=== PATIENT | female | born 1960 | race Caucasian/White ===

== ENCOUNTER 2021-09-20 22:42 | Inpatient (IN) | payer MEDICAID ==
[~2021-09-20] VITALS: Ht 167.6 cm; Wt 89.8 kg
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
--- NOTE | 2021-09-20 22:55 | NUR ---
EDMD at pt bedside for eval.
[2021-09-20] MEDS ORDERED: MELO7.5T12 PO (23:13)
[2021-09-20] MEDS ORDERED: ATOR10TA PO (23:13)
[2021-09-20] MEDS ORDERED: ONDANSETRON ODT 4 MG TAB.RAPDIS SL ONE (23:15)
[2021-09-20] MEDS ORDERED: KETOROLAC TROMETHAMINE 60 MG INJ IM ONE ×2 (23:15→23:34)
[2021-09-20] MEDS ORDERED: HYDROMORPHONE 1 MG/1 ML DISP.SYRIN IM ONE (23:15)
--- NOTE | 2021-09-20 23:15 | NUR ---
EDMD ordered some pain medication along with an antiemetic. Meds were administered in a expedient mannor and were extremely effective giving her near instant relief. Pt tolerated well with no s/sx of reaction. Pt had good VS before and after admin. 135/88, 98% RA, 79bpm, 18rpm. Will reassess VS in 1hr. pt states that she feels much better and that for the first time since falling her muscles are relaxed and she is not tense anymore.
[2021-09-20 23:32] LABS: HEMATOCRIT 41.7 % (31.2-41.9); MEAN CORPUSCULAR HEMOGLOBIN 31.4 uug (24.7-32.8); MEAN CORPUSCULAR VOLUME 91.5 fL (75.5-95.3); PLATELET COUNT (AUTO) 213 K/uL (179-408)
[2021-09-20] MEDS ORDERED: HYDROMORPHONE 2 MG/1 ML DISP.SYRIN ONE (23:32)
[2021-09-20] MEDS ORDERED: ONDANSETRON 4 MG/2 ML VIAL ONE (23:32)
[2021-09-20 23:37] LABS: CREATININE 0.6 mg/dL (0.6-1.3)
[2021-09-20 23:42] LABS: BILIRUBIN,DIRECT 0.3 mg/dL (0.0-0.2); BILIRUBIN,TOTAL 1.1 mg/dL (0.2-1.0); TOTAL PROTEIN, SERUM 6.8 g/dL (6.4-8.2)
[2021-09-20] MEDS ORDERED: POTASSIUM BICARBONATE/CIT AC 25 MEQ TABLET.EFF PO ONE (23:45)
--- NOTE | 2021-09-20 23:50 | NUR ---
Pt promptly fell asleep after taking her [place] medication, and is currently resting comfortably. All needs met, side rales up and I am sitting right outside her room and monitoring the pt closely. VSS. Pt has good pulses and cms x4 ext, Youth Director strength strong and equal bilat. Pt is lucid and can carry a conversation, answer questions and follow commands. 126/78, 79bpm, 98% RA, 16rpm. Pt denies any pain.
[2021-09-20 23:53] LABS: CREATINE KINASE, TOTAL 1111 U/L (26-192)
[2021-09-21] MEDS ORDERED: POTASSIUM BICARBONATE/CIT AC 25 MEQ TABLET.EFF ONE (00:05)
--- NOTE | 2021-09-21 05:18 | NUR ---
Pt is sleeping soundly with audible snoring, in pos of comfort. VSS 121/75, 98% RA, 81bpm, 16rpm.
--- NOTE | 2021-09-21 05:30 | NUR ---
Andra called with authorization for the pt to be admitted and treated. Authorization #: [id number]. EDMD Dr. Rincon called and informed of pt's authorization status. Ask him how we ough to proceed, and if he wanted me to call [facility] for panel. Dr. Rincon at this time told me to hold off on calling for admission and that he would let me know when he's ready for me to call for admission consult. I acknowledged and said that I am standing by for him to give further instructions. Pt still appears to be in deep sleep, with audible snorring. VSS. Monitoring pt closely.
--- NOTE | 2021-09-21 06:20 | NUR ---
Pt just woke up for the first time since administering her pain meds. Pt swabbed for covid and specimen sent to lab. Pt informed that she has a FX of her tail bone and that is probably why she was in so much pain and could not walk. Also informed her that she will be admitted somewhere, most likely here, and that she will need to get the FX seen by a specialist and properly treated. Pt is too preoccupied with the drama that exists in her life to really care about her Dx. She keeps asking about what will happen to her dog, or the neighbor she is feuding with because of the backyard construction of a [employer] he has going on. Clearly there seems to be some indications of certain deeper issues she may have going on currently. Informed her that she is free to leave at any time and that we cannot hold her here, and that this is something she will need to think about and make a decision weither to stay and get treated or to follow up with [facility] on her own. She at this point doesnt know what she wants to do or should do regarding staying and being treated.
--- NOTE | 2021-09-21 06:29 | NUR ---
MIRA MARTINI FROM [facility] PAGED.
--- NOTE | 2021-09-21 07:05 | NUR ---
Pts son just called seeking info regarding her status and dispo. Son provided with all the info currently available and was ella tup to date regarding pts current situration. Pt expressing that she doesnt want to be here and that she is considering signing AMA due to her dog and the legal issues she has with neighbor.
--- NOTE | 2021-09-21 09:45 | NUR ---
UNABLE TO DO EKG NOW. PT TALKING ON THE OHONE REQUESTING TO DO THE EKG LATER.
[2021-09-21 10:21] LABS: *BILIRUBIN,URIN 1+ (NEGATIVE); *BLOOD, URINE 2+ (NEGATIVE); *COLOR,URINE YELLOW (YELLOW); *KETONES,URINE TRACE (NEGATIVE); *UROBILINOGEN,URINE 0.2 E.U./dl (NORMAL); LEUKOCYTE ESTERASE ,URINE 1+ (NEGATIVE); NITRITE, URINE NEGATIVE (NEGATIVE); UGLUCOSE NEGATIVE (NEGATIVE)
--- NOTE | 2021-09-21 10:23 | NUR ---
pairsh provided for pt. urine sent to lab
--- NOTE | 2021-09-21 10:31 | NUR ---
PT REFUSES HEPLOCK, REQUESTING ONLY IM PAIN MANAGEMENT.
[2021-09-21] MEDS ORDERED: HYDROMORPHONE 1 MG/1 ML DISP.SYRIN IM PRN (10:45)
[2021-09-21] MEDS ORDERED: HYDROMORPHONE 1 MG/1 ML DISP.SYRIN ONE (10:50)
[2021-09-21] MEDS ORDERED: KETOROLAC TROMETHAMINE 30 MG INJ ONE (10:59)
[2021-09-21] MEDS ORDERED: KETOROLAC TROMETHAMINE 30 MG INJ IM ONE (11:00)
[2021-09-21] MEDS ORDERED: MAGNESIUM HYDROXIDE 30 ML LIQUID UDC PO PRN (11:45)
[2021-09-21] MEDS ORDERED: ONDANSETRON 4 MG/2 ML VIAL IV PRN (11:45)
[2021-09-21] MEDS ORDERED: TEMAZEPAM 15 MG CAPSULE PO PRN (11:45)
[2021-09-21] MEDS ORDERED: ACETAMINOPHEN 325 MG TABLET PO PRN (11:45)
[2021-09-21] MEDS ORDERED: MORPHINE SULFATE 2 MG/1 ML DISP.SYRIN IV PRN (11:45)
[2021-09-21] MEDS: POTASSIUM CHLORIDE 20 MEQ in IV NS 1000 ML 1,000 ML IV PRN (12:17)
[2021-09-21] MEDS: ENOXAPARIN SODIUM 40 MG/0.4 ML DISP.SYRIN SQ SCH (12:30)
--- NOTE | 2021-09-21 13:30 | NUR ---
pt refused heplock/iv with potassium at this time.
[2021-09-21] MEDS ORDERED: ENOXAPARIN SODIUM 40 MG/0.4 ML DISP.SYRIN SQ ONE (13:34)
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
[2021-09-21 15:11] LABS: *CLARITY,URINE TURBID (CLEAR); BACTERIA,URINE FEW /HPF (NONE SEEN); SQUAMOUS EPITHELIAL CELL,UR MODERATE /HPF (NONE SEEN); URINE AMORPHOUS URATE MANY /HPF
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
--- NOTE | 2021-09-21 19:30 | NUR ---
Pt still refusing IV access at this time.
[2021-09-21 20:00] VITALS: BP 131/76
[2021-09-21] MEDS: ATORVASTATIN 10 MG TABLET PO SCH (20:38)
[2021-09-21] MEDS: DOCUSATE SODIUM 100 MG CAPSULE PO SCH (20:39)
[2021-09-21] MEDS: HYDROCODONE/APAP 5-325MG TABLET PO PRN (20:39)
[2021-09-22] MEDS: HYDROCODONE/APAP 5-325MG TABLET PO PRN ×2 (00:43→06:44)
[2021-09-22] MEDS ORDERED: KETOROLAC TROMETHAMINE 15 MG INJ IM PRN (01:45)
[2021-09-22] MEDS: LIDOCAINE 5% PATCH TD SCH ×2 (01:57→20:50)
[2021-09-22 04:00] VITALS: BP 121/70
--- NOTE | 2021-09-22 05:50 | NUR ---
Slept intermittently. Pt very anxious and crying about "family problems" throughout the night. Ketoralac IM given and Lidocaine patch ordered for patient, tolerated well. Able to make needs known. Will endorse to day shift.
[2021-09-22] MEDS: PANTOPRAZOLE SODIUM 40 MG TABLET.DR PO SCH (06:44)
[2021-09-22] MEDS: ENOXAPARIN SODIUM 40 MG/0.4 ML DISP.SYRIN SQ SCH ×2 (08:17→11:19)
[2021-09-22] MEDS: NEOMY/BACITRAC/POLYMI OINT 28.35 GM TUBE TOP SCH (11:29)
--- NOTE | 2021-09-22 11:50 | NUR ---
WOUND CARE CONSULT: PT PRESENTS WITH BILATERAL ELBOW DRY ABRASIONS, PRESENT ON ADMISSION. PT REFUSED TO TURN FOR FULL SKIN ASSESSMENT. CONCUR WITH CURRENT TREATMENT ORDERS. MD IN AGREEMENT WITH PLAN OF CARE.
[2021-09-22 11:51] LABS: HEMATOCRIT 42.3 % (31.2-41.9); MEAN CORPUSCULAR HEMOGLOBIN 31.5 uug (24.7-32.8); MEAN CORPUSCULAR VOLUME 93.2 fL (75.5-95.3); PLATELET COUNT (AUTO) 207 K/uL (179-408)
[2021-09-22 11:55] LABS: BILIRUBIN,TOTAL 0.8 mg/dL (0.2-1.0); CREATININE 0.8 mg/dL (0.6-1.3); MAGNESIUM 2.4 mg/dL (1.8-2.4); POTASSIUM 3.5 mmol/L (3.5-5.1); TOTAL PROTEIN, SERUM 6.6 g/dL (6.4-8.2)
[2021-09-22 12:06] VITALS: BP 121/83
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
[2021-09-22] MEDS: KETOROLAC TROMETHAMINE 30 MG INJ IM PRN ×2 (14:20→20:51)
[2021-09-22 16:00] VITALS: BP 152/92
--- NOTE | 2021-09-22 16:21 | NUR ---
Crisis Team Note Dr Olmedo requested that this clinician meet with patient since patient was taking of leaving AMA earlier. Patient presents as very anxious with congruent affect. She complained of severe pain since her fall and was able to discuss how she fell and crawled to her car to drive to [facility]. she reported how she fell on her marble floors and showed this clinician carnes on her elbows from her crawling to her car.She did not want to call anyone. She was able to relate that " [employer] told her that she did not have a fracture but in fact, she has one per your hospital".. Patient does appear very suspicious of family but is alert and oriented x4. She is organized in her thought process as she said " I need physical therapy and I think I need a brace". In view of patient's level of pain and arrival of physiotherapist, this selling underwriter did not want to push the patient further with a longer assessment. She is coherent and organized with paranoid ideation. Patient is competent to make decisions even if she may be exercising poor judgement. Patient cannot be forced to stay in the hospital nor can she be forced to accept treatment unless she has a life threatening condition. Psychiatry consult has been ordered by Dr Olmedo. Patient discussed her mansion in [place] and said the children want her to sell it. No criteria for 5150. Patient is in distress due to her pain so baseline mood assessment is not possible.
[2021-09-22] MEDS: ATORVASTATIN 10 MG TABLET PO SCH (20:50)
[2021-09-22] MEDS: DOCUSATE SODIUM 100 MG CAPSULE PO SCH (20:50)
[2021-09-22 21:10] VITALS: BP 140/80
[2021-09-22] MEDS: CEphaleXIN 500 MG CAPSULE PO SCH (22:34)
[2021-09-23 04:00] VITALS: BP 125/77
[2021-09-23] MEDS: CEphaleXIN 500 MG CAPSULE PO SCH ×3 (06:12→21:21)
[2021-09-23] MEDS: PANTOPRAZOLE SODIUM 40 MG TABLET.DR PO SCH (06:12)
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
[2021-09-23] MEDS: NEOMY/BACITRAC/POLYMI OINT 28.35 GM TUBE TOP SCH (09:01)
[2021-09-23] MEDS: ENOXAPARIN SODIUM 40 MG/0.4 ML DISP.SYRIN SQ SCH (09:02)
--- NOTE | 2021-09-23 10:30 | NUR ---
PER THE PHYSICAL THERAPIST PATIENT IS REFUSING HER THERAPY ORDERED.
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
[2021-09-23 12:00] VITALS: BP 148/91
--- NOTE | 2021-09-23 12:00 | NUR ---
CALLED [facility] TO ENSURE THAT THE PSYCHIATRIST FINAL EXPENSE AGENT IS AWARE TO COME AND EVALUATE PATIENT SPOKE WITH CHERRI AND SHE STATED THAT PATIENTS NAME IS ON THEIR LIST TO SEE DR BRALOW TODAY.
[2021-09-23] MEDS: KETOROLAC TROMETHAMINE 30 MG INJ IM PRN (13:12)
--- NOTE | 2021-09-23 13:12 | NUR ---
PATIENT REQUESTED FOR PAIN MEDICATION DID NOT WANT TO TRY THE ULTRAM FIRST WANTED THE TORADOL GIVEN I.M ORDERED MADE COMFORTABLE.
[2021-09-23 16:00] VITALS: BP 138/72
--- NOTE | 2021-09-23 18:00 | NUR ---
PATIENT SEEN AND EXAMINED BY DR CORREIA AND PATIENT WAS ENCOURAGED TO NOT REFUSE PHYSICAL THERAPY ORDERED THEY WILL BE ABLE TO FIGURE OUT WHAT TYPE OF BRACE SHE WILL NEED AND SHE EXPRESSED UNDERSTANDING.
--- NOTE | 2021-09-23 20:00 | NUR ---
Patient calling screaming over intercom. This is the first time she is calling during this shift. She is screaming that she will post a complain of the hospital on social media. Listened to patient and assessed need. Patient encouraged to begin to work with PT for solutions to her sacral pain. New morphine IM offered and patient agrees. Still refusing IV access. Patient is content when this RN left the room. Safety measures initiated, call light within reach.
[2021-09-23] MEDS: MORPHINE SULFATE 2 MG/1 ML DISP.SYRIN IM PRN (20:13)
[2021-09-23] MEDS: DOCUSATE SODIUM 100 MG CAPSULE PO SCH (20:14)
[2021-09-23] MEDS: ATORVASTATIN 10 MG TABLET PO SCH (20:14)
[2021-09-23] MEDS: LIDOCAINE 5% PATCH TD SCH (20:14)
[2021-09-23 20:58] VITALS: BP 150/75
[2021-09-24] MEDS: MORPHINE SULFATE 2 MG/1 ML DISP.SYRIN IM PRN ×3 (03:12→21:13)
--- NOTE | 2021-09-24 04:51 | NUR ---
PATIENT IS YELLING AT STAFF, SAYING SHE WILL POST PICTURES OF HERSELF IN THE HOSPITAL ON SOCIAL MEDIA. PATIENTS NEEDS ASSESSED AND MET. SHE IS ON A BED REES ATTEMPTING TO URINATE. PER PATIENT SHE CAN NOT URINATE. OFFERED TO WAIT LONGER IN USING THE BEDPAN OR CALL MD FOR A DU CATHETER. PATIENT ASKED TO BE REPOSITIONED INSTEAD AND WAIT USING HER BEDPAN.
[2021-09-24 05:50] VITALS: BP 137/87
[2021-09-24] MEDS: CEphaleXIN 500 MG CAPSULE PO SCH ×3 (06:31→21:05)
[2021-09-24] MEDS: PANTOPRAZOLE SODIUM 40 MG TABLET.DR PO SCH (06:31)
--- NOTE | 2021-09-24 06:38 | NUR ---
Patient is content. Needs assessed at this time and met. Denies any discomfort, does not request pain medication at this time. Cooling measures in place for temp 93.6. Patient noted to be able to pull herself up in bed using side rails for assist. Patient has some facial grimacing during procedure but refuses assist from staff. States "Niurka done this many times". Safety measures continued. Call light within reach. Addendum: 09/24/21 at 0747 by LISSETT RAMOS RN Temperature correction not 93.6, 99.3.
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
[2021-09-24] MEDS: ENOXAPARIN SODIUM 40 MG/0.4 ML DISP.SYRIN SQ SCH (09:10)
[2021-09-24] MEDS: NEOMY/BACITRAC/POLYMI OINT 28.35 GM TUBE TOP SCH (09:11)
[2021-09-24 12:00] VITALS: BP 120/85
--- NOTE | 2021-09-24 14:37 | NUR ---
Patient said she feels muscle spasm in her back sometimes radiating to her legs. Informed Dr. Olmedo with new order.
[2021-09-24 16:00] VITALS: BP 143/86
--- NOTE | 2021-09-24 16:18 | NUR ---
Patient is scratching lower back. Refused to remove abdominal binder or undershirt which are slightly wet. Pt prefers to stay on her back all the time. Changed her underpad and put towel per request. Requested anti itch cream from dr. salas.
--- NOTE | 2021-09-24 17:30 | NUR ---
Spoke to Dr. Acosta reminded of patient's pending consult. He said he's coming tonight. Dr. maritza jarvis.
[2021-09-24] MEDS: diphenhydrAMINE 1% CREAM 28.3 GM TUBE TP PRN (18:02)
--- NOTE | 2021-09-24 18:42 | NUR ---
Patient continues to refuse Iv heplock despite explanation of risks/benefits. aware.
--- NOTE | 2021-09-24 19:00 | NUR ---
Dr. Acosta on the floor to see the patient.
--- NOTE | 2021-09-24 19:15 | NUR ---
Received pt lying in bed. Dr. Acosta by bedside, talking to pt. AO x 4. On room air saturating at 94%. No signs of acute distress noted. Call lights within reach, safety measures initiated.
[2021-09-24 20:10] VITALS: BP 132/82
[2021-09-24] MEDS: ATORVASTATIN 10 MG TABLET PO SCH (20:31)
[2021-09-24] MEDS: ESCITALOPRAM OXALATE 10 MG TABLET PO SCH (20:31)
[2021-09-24] MEDS: LIDOCAINE 5% PATCH TD SCH (20:32)
[2021-09-24] MEDS: DOCUSATE SODIUM 100 MG CAPSULE PO SCH (20:32)
[2021-09-24] MEDS: CARISOPRODOL 350 MG TABLET PO PRN (21:04)
[2021-09-25 04:21] VITALS: BP 140/82
[2021-09-25] MEDS: CEphaleXIN 500 MG CAPSULE PO SCH ×3 (06:05→21:31)
[2021-09-25] MEDS: PANTOPRAZOLE SODIUM 40 MG TABLET.DR PO SCH (06:05)
[2021-09-25] MEDS: POTASSIUM CHLORIDE 20 MEQ in IV NS 1000 ML 1,000 ML IV PRN ×2 (06:06→15:06)
[2021-09-25] MEDS: MORPHINE SULFATE 2 MG/1 ML DISP.SYRIN IM PRN ×3 (06:16→22:41)
--- NOTE | 2021-09-25 07:17 | NUR ---
Slept comfortably through the night. AOx4. On room air saturating at 95%. Back area cleaned, lidocaine patch applied. Carisoprodol 350mg PO given for muscle spasm, effective. No signs of acute distress noted. Abdominal binder still in place. IV in R hand running NS + 20 meq KCL at 80 mls/hr. Call lights within reach. Safety measures maintained. Will endorse to am shift.
[2021-09-25] MEDS: ESCITALOPRAM OXALATE 10 MG TABLET PO SCH ×2 (09:00→20:18)
[2021-09-25] MEDS: NEOMY/BACITRAC/POLYMI OINT 28.35 GM TUBE TOP SCH (10:01)
[2021-09-25] MEDS: ENOXAPARIN SODIUM 40 MG/0.4 ML DISP.SYRIN SQ SCH (10:02)
--- NOTE | 2021-09-25 10:06 | NUR ---
Patient prefers to take Lexapro at bedtime. md and pharmacy aware.
[2021-09-25] MEDS: diphenhydrAMINE 1% CREAM 28.3 GM TUBE TP PRN (10:34)
--- NOTE | 2021-09-25 13:31 | NUR ---
Patient is yelling upset that I haven't given her pain medication due at 10. Informed her that the order is as needed and that this is the first time she's asked for it today but she refused to listen and dismissed me stating that she's on the phone with her insurance because she needs to figure out where to go from here. Patient said she spoke with watch case polisher earlier about going to a rehab facility to continue physical therapy but pt said she refused to go and needs to talk to her insurance about it. Offered to give her pain medication now but she said no because she's on hold with her insurance still. [place] community associate also came in to talk to patient per request but pt was still on the phone.
--- NOTE | 2021-09-25 15:06 | NUR ---
SW Family Contact SHERON spoke with patient's son, Zan Cruz [phone], to inform him of patient's discharge. Patient's son expressed his concerns for patient's discharge and stated he understood but would like to speak with Dr. Olmedo and Dr. Acosta. SW informed him that she will let doctors know to give him a call. SW received call from patient's son, Rajeev Cruz [phone], who stated that he was scared for patient's and their safety upon discharge. Mr. Cruz stated that the psychiatrist has not contacted them and he wants to express his concern. SW informed him that she will continue to follow up with psychiatrist. Plan: SW will continue to follow up with family.
[2021-09-25 16:00] VITALS: BP 124/73
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
--- NOTE | 2021-09-25 19:02 | NUR ---
Patient is still on the phone and refused to be disturbed. Asked if she needs anything and she shook her head. Endorsed.
[2021-09-25] MEDS: DOCUSATE SODIUM 100 MG CAPSULE PO SCH (20:18)
[2021-09-25] MEDS: LIDOCAINE 5% PATCH TD SCH (20:19)
[2021-09-25] MEDS: ATORVASTATIN 10 MG TABLET PO SCH (20:50)
[2021-09-25 21:00] VITALS: BP 122/85
[2021-09-26] MEDS: CARISOPRODOL 350 MG TABLET PO PRN (04:20)
[2021-09-26 04:29] VITALS: BP 138/83
[2021-09-26] MEDS: CEphaleXIN 500 MG CAPSULE PO SCH ×3 (06:14→21:24)
[2021-09-26] MEDS: PANTOPRAZOLE SODIUM 40 MG TABLET.DR PO SCH (06:14)
[2021-09-26] MEDS: HYDROCODONE/APAP 5-325MG TABLET PO PRN ×3 (06:43→18:41)
[2021-09-26] MEDS: NEOMY/BACITRAC/POLYMI OINT 28.35 GM TUBE TOP SCH (08:23)
[2021-09-26] MEDS: ENSURE ENLIVE (VAN) 240 ML LIQUID PO SCH (08:23)
--- NOTE | 2021-09-26 10:07 | NUR ---
Patient to be seen by pain management to assess patient's pain.
[2021-09-26] MEDS: MORPHINE SULFATE 2 MG/1 ML DISP.SYRIN IM PRN (10:41)
[2021-09-26 11:51] VITALS: BP 128/73
[2021-09-26] MEDS: DOCUSATE SODIUM 100 MG CAPSULE PO SCH ×2 (13:24→17:18)
--- NOTE | 2021-09-26 15:20 | NUR ---
Patient okay receiving pain meds via IV. Will endorse information to PM nurse. Patient is planned to be discharged to [facility] to continue rehab therapy. Doctor notified. Agricultural Agent notified.
[2021-09-26 15:38] VITALS: BP 128/77
[2021-09-26] MEDS ORDERED: KETOROLAC TROMETHAMINE 30 MG INJ IVP PRN (19:00)
[2021-09-26] MEDS ORDERED: KETOROLAC TROMETHAMINE 30 MG INJ IVP SCH (19:00)
--- NOTE | 2021-09-26 19:45 | NUR ---
Pt refusing IV fluids
[2021-09-26 20:00] VITALS: BP 151/76
[2021-09-26] MEDS: ATORVASTATIN 10 MG TABLET PO SCH (21:24)
[2021-09-26] MEDS: ESCITALOPRAM OXALATE 10 MG TABLET PO SCH (21:24)
[2021-09-26] MEDS: LIDOCAINE 5% PATCH TD SCH (21:24)
[2021-09-26] MEDS: METHOCARBAMOL 750 MG TABLET PO SCH (21:27)
[2021-09-27] MEDS: HYDROCODONE/APAP 10-325 MG TABLET PO PRN ×2 (00:56→23:13)
[2021-09-27] MEDS: KETOROLAC TROMETHAMINE 30 MG INJ IVP SCH ×4 (03:00→21:21)
--- NOTE | 2021-09-27 05:39 | NUR ---
Slept intermittently. C/o pain in sacral region that is alleviated with [place]. Pt refused Toradol. No distress noted. Comfort maintained. Relaxation techniques given to patient to hammersmith helper in pain relief. Will endorse to day shift.
[2021-09-27] MEDS: CEphaleXIN 500 MG CAPSULE PO SCH ×3 (06:06→21:20)
[2021-09-27] MEDS: MORPHINE SULFATE 2 MG/1 ML DISP.SYRIN IM PRN (06:06)
[2021-09-27] MEDS: PANTOPRAZOLE SODIUM 40 MG TABLET.DR PO SCH (06:06)
[2021-09-27 07:08] LABS: HEMATOCRIT 42.2 % (31.2-41.9); MEAN CORPUSCULAR HEMOGLOBIN 31.8 uug (24.7-32.8); MEAN CORPUSCULAR VOLUME 92.9 fL (75.5-95.3); PLATELET COUNT (AUTO) 215 K/uL (179-408)
[2021-09-27 07:29] LABS: CREATININE 0.5 mg/dL (0.6-1.3); MAGNESIUM 2.5 mg/dL (1.8-2.4); PHOSPHOROUS 3.8 mg/dL (2.5-4.9); POTASSIUM 3.5 mmol/L (3.5-5.1)
[2021-09-27] MEDS: DOCUSATE SODIUM 100 MG CAPSULE PO SCH ×2 (08:10→18:16)
[2021-09-27] MEDS: ENSURE ENLIVE (VAN) 240 ML LIQUID PO SCH (08:11)
[2021-09-27] MEDS: METHOCARBAMOL 750 MG TABLET PO SCH ×3 (08:11→18:16)
[2021-09-27] MEDS: NEOMY/BACITRAC/POLYMI OINT 28.35 GM TUBE TOP SCH (08:11)
--- NOTE | 2021-09-27 09:51 | NUR ---
Notified Dr. Augustine to place order for Lidocaine cream BID for patient experiencing pain. Will place order and endorse to PM nurse.
[2021-09-27] MEDS: LIDOCAINE 5% OINT 35.44 GM TUBE TOP SCH ×2 (10:29→18:16)
[2021-09-27 11:49] VITALS: BP 117/67
[2021-09-27] MEDS ORDERED: METH-807 PO (12:10)
[2021-09-27] MEDS ORDERED: HYDR-3972 PO (12:10)
[2021-09-27] MEDS ORDERED: DOCU-141 PO (12:10)
[2021-09-27] MEDS ORDERED: LIDO30AD10 TD (12:10)
[2021-09-27] MEDS ORDERED: ACET325T53 PO (12:10)
[2021-09-27] MEDS ORDERED: TEMA15CA PO (12:10)
[2021-09-27] MEDS ORDERED: Neomy/Bacitrac/Polymi Oint TOP (12:10)
[2021-09-27] MEDS ORDERED: HYDR-3980 PO (12:10)
[2021-09-27] MEDS ORDERED: ESCI-9 PO (12:10)
[2021-09-27] MEDS ORDERED: LIDO35.4 TOP (12:10)
[2021-09-27] MEDS: HYDROCODONE/APAP 5-325MG TABLET PO PRN (12:55)
[2021-09-27 16:05] VITALS: BP 153/64
[2021-09-27] MEDS ORDERED: DOCU250C14 PO (16:41)
[2021-09-27] MEDS ORDERED: ESCI5TAB PO (16:41)
[2021-09-27] MEDS ORDERED: LIDO30AD10 TP (16:41)
--- NOTE | 2021-09-27 19:30 | NUR ---
ANDREIA Zuñiga informed this nurse that she overheard pt talking on the phone stating that she is going to throw herself on the floor so that she can beryl the hospital.
[2021-09-27 20:14] VITALS: BP 137/77
[2021-09-27] MEDS: LIDOCAINE 5% PATCH TD SCH (21:21)
[2021-09-27] MEDS: ESCITALOPRAM OXALATE 10 MG TABLET PO SCH (21:21)
[2021-09-27] MEDS: ATORVASTATIN 10 MG TABLET PO SCH (21:21)
[2021-09-28] MEDS: KETOROLAC TROMETHAMINE 30 MG INJ IVP SCH ×2 (02:46→09:00)
--- NOTE | 2021-09-28 05:37 | NUR ---
Pt slept intermittently throughout the night. C/o pain periodically. IV site intact. Refused Toradol at 0300H. Pt very anxious, relaxation techniques taught to patient to aide in relaxation. Comfort maintained. Will endorse to day shift.
[2021-09-28] MEDS: PANTOPRAZOLE SODIUM 40 MG TABLET.DR PO SCH (06:21)
[2021-09-28] MEDS: CEphaleXIN 500 MG CAPSULE PO SCH (06:21)
[2021-09-28] MEDS: MORPHINE SULFATE 2 MG/1 ML DISP.SYRIN IM PRN ×2 (06:21→11:28)
--- NOTE | 2021-09-28 07:00 | NUR ---
received pt in bed awake .axox4.call light with in reach no c/o pain noted.
[2021-09-28] MEDS: DOCUSATE SODIUM 100 MG CAPSULE PO SCH (08:00)
[2021-09-28] MEDS: ENSURE ENLIVE (VAN) 240 ML LIQUID PO SCH (08:02)
[2021-09-28] MEDS: NEOMY/BACITRAC/POLYMI OINT 28.35 GM TUBE TOP SCH (08:50)
[2021-09-28] MEDS: LIDOCAINE 5% OINT 35.44 GM TUBE TOP SCH (09:00)
[2021-09-28] MEDS: METHOCARBAMOL 750 MG TABLET PO SCH ×2 (09:24→13:00)
--- NOTE | 2021-09-28 11:00 | NUR ---
PATIENT IS YELLING AT STAFF,and on the phone talking to somebody SAYING SHE WILL POST PICTURES OF THE HOSPITAL ON SOCIAL MEDIA.md and charge nurse made aware PATIENTS NEEDS ASSESSED AND MET.
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
[2021-09-28 11:45] VITALS: BP 142/89
--- NOTE | 2021-09-28 12:02 | NUR ---
Social Work APS Report Protective Services Report (Intake ID [id number]) was submitted on 09/28/2021 at 12:00PM. A copy will be placed in patient's chart.
--- NOTE | 2021-09-28 13:00 | NUR ---
pt is talking on the phone so loud and crying that she needs hospital bed and needs help at home no body helping her in the hospital she wants to transfer to other hospital and she is calling 911 and she will beryl the hospital try to explain to the pt telephonic case manager arrange everything .explain the pt when she will go home home health will follow her
[2021-09-28] MEDS ORDERED: LORAZEPAM 2 MG/1 ML VIAL IV ONE (13:50)
--- NOTE | 2021-09-28 13:59 | NUR ---
pt is very aggressive and crying yelling screaming on the staff and on phone per md orders ativan 1mg iv given
--- NOTE | 2021-09-28 14:20 | NUR ---
dc orders received noted and carried out,dc instruction and education given to the pt and the ambulances people .dc heplock per md orders pt left the facility via ambulances in stable condition
== END 2021-09-28 14:20 | disposition home health service (06) | DRG 347 ==
LOC: ER 22:44 → TRANSITION 09-21 09:35 → MEDSURG3 09-21 13:26
PROVIDERS: ADMIT Internal Medicine; ATTEND Student in an Organized Health Care Education/Training Program
DX: S32.10XA Unspecified fracture of sacrum, initial encounter for closed fracture (principal); M62.82 Rhabdomyolysis; K76.0 Fatty (change of) liver, not elsewhere classified; F29 Unspecified psychosis not due to a substance or known physiological condition; F20.9 Schizophrenia, unspecified; N39.0 Urinary tract infection, site not specified; W19.XXXA Unspecified fall, initial encounter; Z68.32 Body mass index [BMI] 32.0-32.9, adult; E66.9 Obesity, unspecified; E87.6 Hypokalemia; F32.A Depression, unspecified; F41.9 Anxiety disorder, unspecified; N28.1 Cyst of kidney, acquired; Y93.9 Activity, unspecified; Z20.822 Contact with and (suspected) exposure to COVID-19; Y92.009 Unspecified place in unspecified non-institutional (private) residence as the place of occurrence of the external cause; M51.35 Other intervertebral disc degeneration, thoracolumbar region; E78.5 Hyperlipidemia, unspecified; G89.11 Acute pain due to trauma; F32.9 Major depressive disorder, single episode, unspecified
CPT/HCPCS: 36415; 72131; 73700; 83735; 84100; 85025; 87086; 93005; 97161; A4663; G0378; J1170; J1650; J1885; J2060; J2270; J2405; J3480; J7030